=== PATIENT | male | born 1975 | race Caucasian/White ===

== ENCOUNTER 2022-07-03 02:36 | Day surgery (SDC) | payer BC, SELFPAY ==
[2022-06-23 13:14] VITALS: BMI 31.0
--- NOTE | 2022-07-02 09:42 | P.PNAN_ITS ---
Anes - Initial Pre Proc Eval Procedure: Operation Date: 07/03/22 09:15 Proposed Procedures p Screening Colonoscopy - Black Bales MD Date/Time: 07/02/22 09:42 Surgeon: Black Bales MD Pre Op Diagnosis: neoplasm screening, history of colon polyps Patient Data Age: 46 Gender: M Height: 1.8 m Weight: 101 kg Allergies Allergy/AdvReac Type Severity Reaction Status Date / Time No Known Allergies Allergy Unknown Verified 07/03/22 08:02 Home Medications Medication Instructions Recorded Confirmed Type No Home Medications 06/23/22 06/23/22 History Patient hx anesthesia problems: none Family hx anesthesia problems: none Results Review: All pre-operative results and documents have been reviewed as part of the pre- operative evaluation. [facility] Past Medical History Medical History (Updated 07/02/22 @ 09:43 by Jamie Raymundo MD) Hyperlipidemia Obesity NATHAN (obstructive sleep apnea) Social History Social History Smoking status: Never smoker Alcohol intake: current Drinks per week: 2 Substance use type: does not use Living arrangements: with family Spiritual care concerns: No Anes - Eval Final PreProcedure Day of Procedure 07/02/22 09:42 Patient weight: obese Heart: regular rate and rhythm Lungs: clear to auscultation and normal air movement Airway: Mallampati scale class II Neurological: alert and oriented Last oral intake: >/= 8 hours ASA classification: II Emergent: no Anesthetic plan: proceed Anesthesia type and monitoring: general GIVS Results Review: All pre-operative results and documents have been reviewed as part of the pre- operative evaluation. Informed Consent: The patient's anesthetic plan and its attendant risks and benefits were discussed with the patient/family/POA. Questions were solicited and answers provided to the satisfaction of the patient/family/POA.
[2022-07-03 08:02] VITALS: BP 141/91; PULSE 66; RESP 20; TEMP 36.6; O2SAT 99; BMI 33.5
[2022-07-03] MEDS: LACTATED RINGERS 1,000 ML 150 ML IV CONT (08:12)
--- NOTE | 2022-07-03 09:03 | PM.HPGS ---
History of Present Illness History of Present Illness Consent: Risks, benefits, and alternatives have been discussed and questions answered. Patient agrees to proceed with procedure. Chief complaint: neoplasm screening, history of colon polyps Narrative: Asim Huertas is a 46 year old male with colon polyp 4 years ago Review of Systems Constitutional: Constitutional: Denies headache(s) and Denies weakness Eyes: Eyes: Denies blurry vision ENT: Reports Normal hearing present, Denies headache(s) and Denies neck pain Cardiovascular: Cardiovascular: Denies chest pain and Denies dyspnea Respiratory: Respiratory: Denies dyspnea Gastrointestinal: Gastrointestinal: Reports no additional gastrointestinal complaints Genitourinary: Genitourinary: Denies dysuria Musculoskeletal: Musculoskeletal: Denies neck pain Integumentary/Breasts: Skin/Breast: Denies dry skin Neurologic: Reports Normal hearing present, Denies headache(s) and Denies weakness Psychiatric: Psychiatric: Denies anxiety Endocrine: Endocrine: Denies change in body appearance Hematologic/Lymphatic: Hematologic/Lymphatic: Denies easy bleeding Allergic/Immunologic: Allergic/Immunologic: Denies urticaria PMFSH Past Medical History Medical History (Updated 07/03/22 @ 09:03 by Black Bales MD) Colon polyp Hyperlipidemia Obesity NATHAN (obstructive sleep apnea) Social History Social History Smoking status: Never smoker Alcohol intake: current Drinks per week: 2 Substance use type: does not use Living arrangements: with family Spiritual care concerns: No Meds Home Medications and Allergies Home Medications Medication Instructions Recorded Confirmed Type No Home Medications 06/23/22 06/23/22 History Allergies Allergy/AdvReac Type Severity Reaction Status Date / Time No Known Allergies Allergy Unknown Verified 07/03/22 08:02 Vital Signs Vital Signs - 24 hr 07/03/22 08:02 Temperature 97.9 F Pulse Rate 66 Respiratory Rate 20 Blood Pressure 141/91 H Pulse Oximetry 99 Oxygen Delivery Room Air Exam Const: General: comfortable and no acute distress HENMT: Face/Nose/Sinus: Normal nares present Eyes: General: appearance normal, both eyes and all related structures Neck: Neck: no JVD Resp: Auscultation: clear to auscultation bilaterally Cardio: Rate: regular rate Rhythm: regular rhythm GI: Inspection: non-distended GI Palp: Yes Soft to palpation Skin: General skin exam: normal color Neuro: General: gait normal Speech: normal speech Extrem: General: normal to inspection Psych: Mental Status: mental status grossly normal Assessment and Plan Assessment and plan (1) Colon polyp: Code(s): K63.5 - Polyp of colon Status: Acute Assessment and Plan: colonoscopy
[2022-07-03 09:18] VITALS: BP 105/64; PULSE 76; RESP 15; O2SAT 94
[2022-07-03 09:28] VITALS: BP 103/65; PULSE 75; RESP 15; O2SAT 94
[2022-07-03 09:37] VITALS: BP 115/64; PULSE 90; RESP 15; O2SAT 94
== END 2022-07-03 09:51 | disposition home or self-care (01) ==
PROVIDERS: PCP Nurse Practitioner Family; Visit Provider Internal Medicine Gastroenterology
PROC: 0DJD8ZZ Inspection of Lower Intestinal Tract, Via Natural or Artificial Opening Endoscopic (ICD-10-PCS; CPT 45378; principal; 2022-07-03 09:15)
DX: Z12.11 Encounter for screening for malignant neoplasm of colon (principal); K57.30 Diverticulosis of large intestine without perforation or abscess without bleeding; Z86.010 Personal history of colon polyps; E78.5 Hyperlipidemia, unspecified; G47.33 Obstructive sleep apnea (adult) (pediatric); E66.9 Obesity, unspecified; Z68.33 Body mass index [BMI] 33.0-33.9, adult
CPT/HCPCS: 45378; J2704; J7120